=== PATIENT | female | born 1975 | race Caucasian/White ===

== ENCOUNTER 2020-06-05 18:47 | Emergency (ER) | payer BC, SELFPAY ==
[~2020-06-05 18:47] MED LIST: Emtricitabine/Tenofovir 200-300 MG TAB ONE; Raltegravir Potassium 400 MG TAB ONE
[2020-06-05] MEDS ORDERED: EMTRICITABINE PO SCH (20:15)
[2020-06-05] MEDS ORDERED: TENOFOVIR PO SCH (20:15)
[2020-06-05] MEDS ORDERED: RALTEGRAVIR POTASSIUM 400 MG PO SCH (20:15)
[2020-06-06 11:46] LABS: HIV (1/2) Antibody/Antigen Non-Reactive (NonReactive); HIV 1/2 INDEX 0.48 S/CO (<1.00); Hep C IgG Ab Non-Reactive (NonReactive); Hep C Index 0.12 S/CO (0-0.79)
[2020-06-06 11:50] LABS: Hep B Surf AB Reactive (NonReactive)
== END 2020-06-05 21:22 | disposition home or self-care (01) ==
LOC: MADERS 18:47
DX: S61.233A Puncture wound without foreign body of left middle finger without damage to nail, initial encounter (principal); Z77.21 Contact with and (suspected) exposure to potentially hazardous body fluids; G43.909 Migraine, unspecified, not intractable, without status migrainosus; F41.9 Anxiety disorder, unspecified; F32.9 Major depressive disorder, single episode, unspecified; F43.10 Post-traumatic stress disorder, unspecified; F90.9 Attention-deficit hyperactivity disorder, unspecified type; Z79.899 Other long term (current) drug therapy; W46.0XXA Contact with hypodermic needle, initial encounter; Y92.149 Unspecified place in prison as the place of occurrence of the external cause; Y99.0 Civilian activity done for income or pay
CPT/HCPCS: 36415; 86706; 86803; 87389; 99283

== ENCOUNTER 2020-12-31 22:43 | Emergency (ER) | payer BC, OTHER ==
[2020-12-31] MEDS ORDERED: Lidocaine 2% 20 ml MDV ONE (22:56)
[2020-12-31] MEDS ORDERED: Amoxicillin/Potassium Clav 875 MG TAB ONE (23:37)
== END 2020-12-31 23:51 | disposition home or self-care (01) ==
LOC: MADERS 22:43
DX: S01.511A Laceration without foreign body of lip, initial encounter (principal); F17.200 Nicotine dependence, unspecified, uncomplicated; W54.8XXA Other contact with dog, initial encounter
CPT/HCPCS: 12013